=== PATIENT | female | born 1950 | race Caucasian/White ===

== ENCOUNTER 2017-04-03 10:23 | Emergency (ER) | payer MEDICARE, OTHER ==
[2017-04-03] MEDS ORDERED: IOPAMIDOL-300 100 ML VIAL IVP ONE ×2 (10:24→12:04)
[2017-04-03 11:00] LABS: BASOPHILS % (AUTO) 0.4 %; EOSINOPHILS # (AUTO) 0.1 10^3/uL (0.0-0.7); EOSINOPHILS % (AUTO) 1.7 %; HGB - HEMOGLOBIN 11.2 g/dL (12.0-16.0); LYMPHOCYTES # (AUTO) 1.4 10^3/uL (1.5-3.5); LYMPHOCYTES % (AUTO) 26.5 %; MEAN CORPUSCULAR HEMOGLOBIN 28.3 pg (27.0-31.0); MEAN CORPUSCULAR HGB CONC 32.6 g/dL (32.0-36.0); MEAN CORPUSCULAR VOLUME 86.8 fL (81.0-99.0); MEAN PLATELET VOLUME 8.8 fL (7.9-10.8); MONOCYTES # (AUTO) 0.5 10^3/uL (0.0-1.0); NEUTROPHILS # (AUTO) 3.3 10^3/uL (1.5-6.6); NEUTROPHILS % (AUTO) 62.4 %; PLT - PLATELET COUNT 198 10^3/uL (130-450); RED BLOOD COUNT 3.96 10^6/uL (4.20-5.40); RED CELL DISTRIBUTION WIDTH 15.3 % (12.0-15.0); WHITE BLOOD COUNT 5.3 x10^3/uL (4.8-10.8)
[2017-04-03 11:16] LABS: ALBUMIN 3.5 g/dL (3.2-5.5); ALBUMIN/GLOBULIN RATIO 1.3 (1.0-2.2); BILIRUBIN,TOTAL 0.4 mg/dL (0.2-1.0); CALCIUM 8.3 mg/dL (8.5-10.3); CREATININE 0.7 mg/dL (0.4-1.0); TOTAL PROTEIN 6.2 g/dL (6.7-8.2)
--- NOTE | 2017-04-03 11:27 | XRAY Preliminary Report ---
Exam: XR CHEST 2 VIEW X-RAY IMPRESSION: 1. No consolidation evident. [facility] SITE ID: [id number]
--- NOTE | 2017-04-03 11:27 | XRAY Report ---
EXAM: CHEST RADIOGRAPHY EXAM DATE: 04/03/2017 11:13 AM. CLINICAL HISTORY: Chest pain for one week. COMPARISON: Chest x-ray 10/14/2015. TECHNIQUE: 2 views. FINDINGS: Lungs/Pleura: No focal opacities evident. No pleural effusion. No pneumothorax. Normal volumes. Mediastinum: Heart and mediastinal contours are unremarkable. Other: Generalized thoracic kyphosis. Prior lumbar fusion surgery partially imaged. Potential small hiatal hernia. IMPRESSION: 1. No consolidation evident. [facility] Referring Provider Line: [phone] SITE ID: [id number]
--- NOTE | 2017-04-03 11:31 | ED Physician Documentation ---
History of Present Illness - Stated complaint Stated Complaint: CHEST PX/SOA - Chief complaint Chief Complaint: Cardiac - Additonal information Additional information: hx from pt 66 female to ER with right sided CP X 1 week comes and goes but can last many hr at a time when present right sided from side to under breath no leg pain swelling worse with moving breathing laying down no fever cough no abd pain no NVD no recent travel fhx CAD numerous females this pt had DVT 2001 cause unknown not anticoagulated now pain not there right now - just 03/15 Review of Systems Constitutional: denies: Fever Throat: denies: Sore throat Cardiac: reports: Chest pain / pressure Respiratory: reports: Dyspnea. denies: Cough GI: denies: Abdominal Pain, Nausea, Vomiting, Diarrhea Musculoskeletal: denies: Extremity pain Endocrine: denies: Easy bruising / bleeding Immunocompromised: denies: Immunocompromised PD PAST MEDICAL HISTORY - Present Medications Home Medications: Ambulatory Orders Medication Instructions Recorded Confirmed Budesonide/Formoterol Fumarate 04/03/17 [Symbicort 80-4.5 Mcg Inhaler] Lidocaine Patch 5% [Lidoderm Patch] 1 each TOP DAILY PRN #10 patch 04/03/17 Sucralfate 1 gm PO ACHS #120 tablet 04/03/17 raNITIdine [Zantac] 150 mg PO BID #60 tablet 04/03/17 - Allergies Allergies/Adverse Reactions: Allergies Allergy/AdvReac Type Severity Reaction Status Date / Time No Known Drug Allergies Allergy Verified 04/03/17 10:33 PD ED PE NORMAL - Vitals Vital signs reviewed: Yes - General General: Alert and oriented X 3 - HEENT HEENT: PERRL - Neck Neck: Supple, no meningeal sign - Cardiac Cardiac: RRR - Respiratory Respiratory: No respiratory distress, Clear bilaterally, Other (no shingles rash ) - Abdomen Abdomen: Non tender - Derm Derm: Normal color - Extremities Extremities: No deformity, No edema, No calf tenderness / cord - Neuro Neuro: Alert and oriented X 3 Results - Vitals Vitals: Vital Signs - 24 hr 04/03/17 04/03/17 04/03/17 10:27 12:10 13:32 Temperature 35.6 C L Heart Rate 70 69 79 Respiratory 16 18 20 Rate Blood Pressure 211/78 H 169/60 H 162/93 H O2 Saturation 100 99 100 Oxygen O2 Source Room air - EKG (time done) 1031 Rate: Rate (enter#) (71) Rhythm: NSR Intervals: Normal GA Ischemia: Non specific changes (flat laterally and inferior) - Labs Labs: Laboratory Tests 04/03/17 04/03/17 04/03/17 10:55 10:55 10:55 WBC 5.3 RBC 3.96 L Hgb 11.2 L Hct 34.4 L MCV 86.8 MCH 28.3 MCHC 32.6 RDW 15.3 H Plt Count 198 MPV 8.8 Neut # 3.3 Lymph # 1.4 L Perkins # 0.5 Eos # 0.1 Baso # 0.0 Absolute Nucleated RBC 0.00 Nucleated RBC % 0.0 Sodium 139 Potassium 3.8 Chloride 104 Carbon Dioxide 24 Anion Gap 11.0 BUN 15 Creatinine 0.7 Estimated GFR (MDRD) 84 L Glucose 103 H Calcium 8.3 L Total Bilirubin 0.4 AST 19 ALT 14 Alkaline Phosphatase 70 Troponin I < 0.04 Total Protein 6.2 L Albumin 3.5 Globulin 2.7 Albumin/Globulin Ratio 1.3 Lipase 24 - Rads (name of study) CXR Radiology: See rad report (NACPD) CTPA Radiology: See rad report (no PE no dissection) PD MEDICAL DECISION MAKING - ED course ED course: neg trop after sx for many hr every day for a week effectivekly rules out ACS CTPA no PE or dissection, does have HH will reassure an plan to dc Departure - Departure Disposition: 01 Home, Self Care Clinical Impression: Chest pain Qualifiers: Chest pain type: unspecified Qualified Code(s): R07.9 - Chest pain, unspecified Condition: Good Instructions: ED Chest Pain Atypical Unkn Cause Follow-Up: Ash Damian DO [Primary Care Provider] - Prescriptions: Lidocaine Patch 5% [Lidoderm Patch] 1 each TOP DAILY PRN #10 patch PRN Reason: Pain raNITIdine [Zantac] 150 mg PO BID #60 tablet Sucralfate 1 gm PO ACHS #120 tablet Comments: The EKG and blood work indicate these pain are not a heart attack. The CT scan did not show a blood clot in your lung - no an aneurysm or tear of your aorta, a collapsed lung or fluid around your heart or lungs There is a hiatal hernia seen on CT and acid reflux can cause chest pain that is worse at night when you lay down so that is a possible cause Another possible cause of the pain would be shingles - since the pain is severe and one sided - right now there is no shingles rash but often the nerve pain precedes the rash by several days to a week - please check your skin every day and if you develop a rash see your PMD to get anti-viral medication. But for now, given the reassuring work up, I think it is safe for you to go home. I have prescribed lidocaine patches, zantac and carafate to try and help the pain. Please follow up with your PMD for a recheck this week - even though I don't think this pain is a heart attack, I think it would be prudent to get a stress test for risk stratification Return to the ER if worse or new symptoms develop - right now all the tests are reassuring but it is possible that over time as things progress, a diagnosis might become apparent that could not be identified today even after a thorough evaluation
[2017-04-03] MEDS ORDERED: IOPAMIDOL-300 100 ML VIAL ONE (11:39)
--- NOTE | 2017-04-03 12:39 | CT Report ---
EXAM: CT ANGIOGRAM CHEST EXAM DATE: 04/03/2017 12:05 PM. CLINICAL HISTORY: Pleuritic r chest pain. Hx DVT. COMPARISON: Chest x-ray same day. TECHNIQUE: Routine helical imaging was performed through the chest in the pulmonary arterial phase. I V Contrast: 80 cc Isovue 300. Reconstructions: Coronal 3-D MIP reconstructions.Sagittal and coronal. In accordance with CT protocol optimization, one or more of the following dose reduction techniques w ere utilized for this exam: automated exposure control, adjustment of mA and/or KV based on patient s ize, or use of iterative reconstructive technique. FINDINGS: Pulmonary Arteries: Diagnostic quality: Adequate through the segmental arteries. No evidence for acute or chronic pulmona ry emboli. RV/LV is within normal limits. There is no interventricular septal bowing. There is no reflux of cont rast material in the IVC. Lungs/Pleura: Calcified granulomas within both lungs. No lung mass or suspicious nodule. Mild dependent right lower lobe atelectasis. No pleural effusion. Mediastinum: Mild cardiomegaly. No pericardial effusion. Thoracic Aorta: Unremarkable. Upper Abdomen: Small hiatal hernia. Probable prior gastric bypass. Focal mildly dilated left upper qu adrant small bowel loop near enteroenteric anastomosis is expected, given prior surgery. Probable small 1 cm posterior right liver dome cyst with water attenuation. Other: Generalized thoracic kyphosis with multilevel degenerative changes. IMPRESSION: 1. No pulmonary emboli. 2. Small hiatal hernia. Probable prior gastric bypass surgery. 3. Remote granulomatous disease. [facility] Referring Provider Line: [phone] SITE ID: [id number]
[2017-04-03 13:33] VITALS: BP 162/93
== END 2017-04-03 14:10 | disposition home or self-care (01) ==
LOC: ED 10:23
DX: R07.9 Chest pain, unspecified (principal); Z86.718 Personal history of other venous thrombosis and embolism; Z82.49 Family history of ischemic heart disease and other diseases of the circulatory system
CPT/HCPCS: 36415; 71046; 71275; 80053; 83690; 84484; 85025; 93005; 99284; Q9967

== ENCOUNTER 2017-04-24 10:23 | Outpatient (CLI) | payer MEDICARE, OTHER | END 2017-04-24 10:24 | disposition home or self-care (01) | LOC: SC 10:23 | PROVIDERS: ATTEND Internal Medicine Pulmonary Disease | DX: G47.30 Sleep apnea, unspecified (principal); G47.10 Hypersomnia, unspecified; R06.83 Snoring; G47.8 Other sleep disorders | CPT/HCPCS: 99203; G0463; 99212 ==

== ENCOUNTER 2017-04-27 08:32 | Outpatient (CLI) | payer MEDICARE, OTHER ==
[2017-04-27] MEDS ORDERED: REGADENOSON 0.4 MG/5 ML SYRINGE IVP ONE ×2 (09:55→12:53)
--- NOTE | 2017-04-27 14:50 | Nuclear Medicine Report ---
EXAM: SINGLE-ISOTOPE PHARMACOLOGICAL STRESS TEST WITH REGADENOSON. SINGLE-ISOTOPE AND ONE-DAY REST/STRESS M YOCARDIAL PERFUSION SCANS WITH TOMOGRAPHIC IMAGING, QUANTITATIVE ANALYSIS, WALL MOTION ANALYSIS AND C ALCULATION OF EJECTION FRACTION. EXAM DATE: 04/27/2017 01:14 PM. CLINICAL HISTORY: CHEST PAIN. COMPARISON: None. TECHNIQUE: After the intravenous administration of 9.4 mCi of Tc-99m sestamibi, a rest myocardial perfusion scan was done with tomography. Motion correction was applied when appropriate. After an appropriate delay, pharmacological stress was performed with the infusion of 0.4 mg regadeno son per protocol. According to protocol, 42.5 mCi of Tc-99m sestamibi was injected for stress myocard ial perfusion scan. Motion correction was applied when appropriate. Gated tomographic images were obtained for wall motion analysis and computation of left ventricular e jection fraction. FINDINGS: No convincing fixed or reversible perfusion defects are evident. Wall motion analysis demonstrates no focal wall motion abnormality. The left ventricular end-diastolic volume is 83 cc. The left ventricular end-systolic volume is 17 cc . The left ventricular ejection fraction is calculated to be 79%. IMPRESSION: 1. No scintigraphic findings to indicate myocardial ischemia. Negative for infarct. 2. Left ventricular ejection fraction of >65%. 3. Normal segmental and global wall motion. 4. Normal left ventricular cavity size, no change with stress. [facility] Referring Provider Line: [phone] SITE ID: [id number]
[2017-04-27 17:54] VITALS: BP 112/76
--- NOTE | 2017-04-28 10:44 | CARDIAC PROCEDURE NOTE ---
DATE OF SERVICE: 04/27/2017 Physician: SCAR Downing PRIMARY CARE PHYSICIAN: Dr. Ash Damian PROCEDURE: Pharmaceutical stress test. PROCEDURE SYMPTOMS: Atypical chest pain. CARDIAC RISK FACTORS INCLUDE: Age and family history at greater than 65 years of age. PREVIOUS CARDIAC PROCEDURES: None. CURRENT SYMPTOMATOLOGY: "Feels good." History of reactive airway disease. CLINICAL HISTORY: A 66-year-old sedentary female without known coronary artery disease. INITIAL RESTING VITAL SIGNS: Blood pressure 112/76, heart rate 74, height 63 inches, weight 245, BMI 43.4. PROCEDURE AND FINDINGS: Patient identity and date verified, consent signed, pharmaceutical check. DESCRIPTION: Pharmaceutical stress testing was performed with Lexiscan at a dose of 0.4 mg/5 mL IV push. The heart rate osiris to 101 beats per minute and blood pressure increased to 126/88, which is a normal response. The patient experienced infusion-related symptoms including mild shortness of air and a pulsing sensation in the right chest. Those symptoms resolved spontaneously. The resting ECG demonstrated normal sinus rhythm with no abnormality. Maximum ST segment depression under stress was less than 0.5 and upsloping. T- wave inversion occurred right after pharmaceuticals were in, occurring in leads aVF and V3-5, lasting approximately 3.5 minutes. The patient denied any chest pain during this time. Ectopy included 1 PVC. FINAL IMPRESSIONS 1. Overall quality of the study was good. 2. Nondiagnostic stress electrocardiogram for ischemia by electrocardiographic criteria with T-wave inversions that resolved. 3. Nondiagnostic stress test clinically for angina. 4. One premature ventricular contraction occurred. 5. Await myocardial perfusion test result. TD: 04/27/2017 12:05 KEY
== END 2017-04-27 08:33 | disposition home or self-care (01) ==
LOC: DI 08:32
PROVIDERS: ATTEND Family Medicine
DX: R07.9 Chest pain, unspecified (principal)
CPT/HCPCS: 78452; 93017; A9500; J2785

== ENCOUNTER 2017-05-11 08:00 | Outpatient (CLI) | payer MEDICARE, OTHER ==
[2017-05-11 13:07] LABS: CHOL/HDL RATIO 2.2 (<4.4); CHOLESTEROL 184 mg/dL; HDL CHOLESTEROL 84 mg/dL; LDL CHOLESTEROL,CALCULATED 84 mg/dL; VLDL CHOLESTEROL 16 mg/dL
== END 2017-05-11 08:01 | disposition home or self-care (01) ==
LOC: LAB.WCP 08:00
PROVIDERS: ATTEND Family Medicine
DX: R07.9 Chest pain, unspecified (principal)
CPT/HCPCS: 36415; 80061; 83721

== ENCOUNTER 2017-06-12 10:27 | Outpatient (CLI) | payer MEDICARE, OTHER | END 2017-06-12 10:28 | disposition home or self-care (01) | LOC: LAB 10:27 | PROVIDERS: ATTEND Surgery | DX: R10.13 Epigastric pain (principal) ==

== ENCOUNTER 2017-06-14 21:58 | Outpatient (CLI) | payer MEDICARE, OTHER | END 2017-06-14 21:59 | disposition home or self-care (01) | LOC: SC 21:58 | PROVIDERS: ATTEND Internal Medicine Pulmonary Disease | DX: G47.33 Obstructive sleep apnea (adult) (pediatric) (principal) | CPT/HCPCS: 95810 ==

== ENCOUNTER 2017-06-24 10:51 | Outpatient (CLI) | payer MEDICARE, OTHER ==
--- NOTE | 2017-06-24 15:12 | Ultrasound Report ---
EXAM: ABDOMEN ULTRASOUND LIMITED, RUQ EXAM DATE: 06/24/2017 11:07 AM. CLINICAL HISTORY: EPIGASTRIC PAIN. COMPARISON: CT angiogram chest 04/03/2017. TECHNIQUE: Real-time scanning was performed with static images obtained. FINDINGS: Liver: Normal in size and echotexture. 16 cm. Normal size, contour, and echotexture. 2.9 x 1.9 x 2.2 cm lobular cyst with thin internal septations inferiorly in the anterior right hepatic lobe, as seen on the prior CT. No other focal lesions are identified. Main portal vein flow: Hepatopetal. Gallbladder: Normal. No stones, wall thickening, or sonographic Cee's sign. Biliary System: CBD measures 5 mm. No intrahepatic or extrahepatic ductal dilatation. Other: Right kidney unremarkable. IMPRESSION: 1. No findings to extend epigastric pain. 2. 2.9 x 1.9 x 2.2 cm mildly complex cyst inferiorly in the anterior right hepatic lobe, similar to f indings on a recent CT angiogram chest. One-year ultrasound follow-up is recommended to reassess. LASHAUN Referring Provider Line: [phone] SITE ID: [id number]
== END 2017-06-24 10:52 | disposition home or self-care (01) ==
LOC: DI 10:51
PROVIDERS: ATTEND Surgery
DX: R10.13 Epigastric pain (principal); K76.89 Other specified diseases of liver
CPT/HCPCS: 76705

== ENCOUNTER 2017-06-27 09:58 | Day surgery (SDC) | payer MEDICARE, OTHER ==
[2017-06-27] MEDS: LACTATED RINGERS 1,000 ML IV ONE (10:31)
[2017-06-27] MEDS ORDERED: fentaNYL 250 MCG/5 ML VIAL IVP ONE (11:00)
[2017-06-27] MEDS ORDERED: MIDAZOLAM 2 MG/2 ML VIAL IVP ONE (11:00)
[2017-06-27] MEDS: BENZOCAINE/TETRACAINE/BUTAMBEN SPRAY 56 GM TOP ONE (11:12)
[2017-06-27 12:33] VITALS: BP 97/52
== END 2017-06-27 09:59 | disposition home or self-care (01) ==
LOC: SDS 09:58
PROVIDERS: ATTEND Surgery
PROC: 0DBF8ZX Excision of Right Large Intestine, Via Natural or Artificial Opening Endoscopic, Diagnostic (ICD-10-PCS; 2017-06-27)
PROC: 0DBN8ZX Excision of Sigmoid Colon, Via Natural or Artificial Opening Endoscopic, Diagnostic (ICD-10-PCS; 2017-06-27)
PROC: 0DBP8ZX Excision of Rectum, Via Natural or Artificial Opening Endoscopic, Diagnostic (ICD-10-PCS; 2017-06-27)
PROC: 0DB48ZX Excision of Esophagogastric Junction, Via Natural or Artificial Opening Endoscopic, Diagnostic (ICD-10-PCS; principal; 2017-06-27 11:15)
PROC: 0DB68ZX Excision of Stomach, Via Natural or Artificial Opening Endoscopic, Diagnostic (ICD-10-PCS; 2017-06-27 11:15)
DX: Z12.11 Encounter for screening for malignant neoplasm of colon (principal); K21.0 Gastro-esophageal reflux disease with esophagitis; D12.5 Benign neoplasm of sigmoid colon; Z98.84 Bariatric surgery status
CPT/HCPCS: 43239; 45380; A9270; J3010; J7120; 88305

== ENCOUNTER 2017-07-18 08:58 | Outpatient (CLI) | payer MEDICARE, OTHER | END 2017-07-18 08:59 | disposition home or self-care (01) | LOC: SC 08:58 | PROVIDERS: ATTEND Nurse Practitioner Family | DX: G47.33 Obstructive sleep apnea (adult) (pediatric) (principal) | CPT/HCPCS: 99214 ==

== ENCOUNTER 2017-10-12 19:47 | Outpatient (CLI) | payer MEDICARE, OTHER | END 2017-10-12 19:48 | disposition home or self-care (01) | LOC: SC 19:47 | PROVIDERS: ATTEND Internal Medicine Pulmonary Disease | DX: G47.33 Obstructive sleep apnea (adult) (pediatric) (principal) | CPT/HCPCS: 95811 ==

== ENCOUNTER 2017-11-01 09:36 | Outpatient (CLI) | payer MEDICARE, OTHER | END 2017-11-01 09:37 | disposition home or self-care (01) | LOC: SC 09:36 | PROVIDERS: ATTEND Nurse Practitioner Family | DX: G47.33 Obstructive sleep apnea (adult) (pediatric) (principal) | CPT/HCPCS: 99214; G0463; 99212 ==

== ENCOUNTER 2017-12-06 09:43 | Outpatient (CLI) | payer MEDICARE, OTHER | END 2017-12-06 09:44 | disposition home or self-care (01) | LOC: SC 09:43 | PROVIDERS: ATTEND Nurse Practitioner Family | DX: G47.33 Obstructive sleep apnea (adult) (pediatric) (principal) | CPT/HCPCS: 99214; G0463; 99212 ==

== ENCOUNTER 2018-02-06 09:58 | Outpatient (CLI) | payer MEDICARE, OTHER | END 2018-02-06 09:59 | disposition home or self-care (01) | LOC: SC 09:58 | PROVIDERS: ATTEND Nurse Practitioner Family | DX: G47.33 Obstructive sleep apnea (adult) (pediatric) (principal); R03.0 Elevated blood-pressure reading, without diagnosis of hypertension | CPT/HCPCS: 99215; G0463; 99212 ==

== ENCOUNTER 2018-02-13 10:37 | Outpatient (CLI) | payer MEDICARE, OTHER ==
[2018-02-13 17:40] LABS: BASOPHILS # (AUTO) 0.1 10^3/uL (0.0-0.1); BASOPHILS % (AUTO) 0.7 %; EOSINOPHILS # (AUTO) 0.1 10^3/uL (0.0-0.7); EOSINOPHILS % (AUTO) 1.4 %; HGB - HEMOGLOBIN 11.5 g/dL (12.0-16.0); LYMPHOCYTES # (AUTO) 1.8 10^3/uL (1.5-3.5); LYMPHOCYTES % (AUTO) 24.3 %; MEAN CORPUSCULAR HEMOGLOBIN 26.9 pg (27.0-31.0); MEAN CORPUSCULAR HGB CONC 31.5 g/dL (32.0-36.0); MEAN CORPUSCULAR VOLUME 85.6 fL (81.0-99.0); MEAN PLATELET VOLUME 8.9 fL (7.9-10.8); MONOCYTES # (AUTO) 0.5 10^3/uL (0.0-1.0); MONOCYTES % (AUTO) 6.2 %; NEUTROPHILS % (AUTO) 67.4 %; PLT - PLATELET COUNT 230 10^3/uL (130-450); RED BLOOD COUNT 4.28 10^6/uL (4.20-5.40); RED CELL DISTRIBUTION WIDTH 16.3 % (12.0-15.0); WHITE BLOOD COUNT 7.5 x10^3/uL (4.8-10.8)
[2018-02-13 17:57] LABS: ALBUMIN 3.9 g/dL (3.2-5.5); ALBUMIN/GLOBULIN RATIO 1.4 (1.0-2.2); ALKALINE PHOSPHATASE 83 IU/L (42-121); ALT ALANINE AMINOTRANSFERASE 16 IU/L (10-60); AST ASPARTATE AMINOTRANSFERASE 21 IU/L (10-42); BILIRUBIN,TOTAL 0.5 mg/dL (0.2-1.0); BUN - BLOOD UREA NITROGEN 13 mg/dL (6-20); CALCIUM 8.6 mg/dL (8.5-10.3); CARBON DIOXIDE - CO2 23 mmol/L (21-32); CHLORIDE 109 mmol/L (101-111); CHOL/HDL RATIO 2.5 (<4.4); CHOLESTEROL 198 mg/dL; CREATININE 0.7 mg/dL (0.4-1.0); GFR - MDRD 84 (>89); GLUCOSE 92 mg/dL (70-100); HDL CHOLESTEROL 79 mg/dL; LDL CHOLESTEROL,CALCULATED 99 mg/dL; LDL/HDL RATIO 1.3 (<4.4); SODIUM 139 mmol/L (135-145); TOTAL PROTEIN 6.6 g/dL (6.7-8.2); VLDL CHOLESTEROL 20 mg/dL
== END 2018-02-13 23:59 | disposition home or self-care (01) ==
LOC: LAB.WCP 10:37
PROVIDERS: ATTEND Family Medicine
DX: R05 Cough (principal); I10 Essential (primary) hypertension; R79.1 Abnormal coagulation profile
CPT/HCPCS: 36415; 80053; 80061; 83721; 85025; 85379

== ENCOUNTER 2018-02-13 17:07 | Outpatient (CLI) | payer MEDICARE, OTHER ==
[2018-02-13] MEDS ORDERED: IOVERSOL 320 100 ML VIAL IVP ONE ×2 (17:47→20:34)
--- NOTE | 2018-02-13 20:24 | CT Report ---
Reason: D DIMER ABOVE REFERENCE RANGE/COUGH/DEEP VENOUS TH Procedure Date: 02/13/2018 Accession Number: [id number] / [id number] Procedure: CT - Chest Angio (PE) CPT Code: FULL RESULT: EXAM: CT ANGIOGRAM CHEST EXAM DATE: 02/13/2018 07:20 PM. CLINICAL HISTORY: D DIMER ABOVE REFERENCE RANGE/COUGH/DEEP VENOUS TH. COMPARISON: CHEST ANGIO 04/03/2017 12:01 PM. TECHNIQUE: Routine helical imaging was performed through the chest in the pulmonary arterial phase. IV Contrast: 80 ML OPTIRAY 320. Reconstructions: Coronal 3-D MIP reconstructions.Sagittal and coronal. In accordance with CT protocol optimization, one or more of the following dose reduction techniques were utilized for this exam: automated exposure control, adjustment of mA and/or KV based on patient size, or use of iterative reconstructive technique. FINDINGS: Pulmonary Arteries: Diagnostic quality: Adequate through the segmental arteries. No evidence for acute or chronic pulmonary emboli. RV/LV is within normal limits. There is no interventricular septal bowing. There is no reflux of contrast material in the IVC. Lungs/Pleura: No consolidation, mass, edema, effusion or pneumothorax identified. Stable 3 mm right upper lobe nodule abutting the fissure, image 55. Stable 3 mm lateral segment right middle lobe nodule abutting the fissure on image 58. Scattered lung calcified granulomas are present. No endobronchial lesions identified. Mediastinum: Extensive mitral valve annular calcification is noted. Borderline cardiac enlargement unchanged. No adenopathy noted. Thoracic Aorta: Unremarkable. Upper Abdomen: Status post gastric bypass. Moderate paraesophageal hernia. 2.2 cm segment 5 liver cysts. No mass or intraparotid bile duct dilation. 1.5 cm left adrenal nodule measuring -18 HU. Normal right adrenal gland. Other: Heterogeneous thyroid parenchyma. No mass or abnormal calcifications noted. No supraclavicular or axillary adenopathy. Patient is kyphotic. No osteoblastic or also the lesions. IMPRESSION: 1. Normal pulmonary CT angiogram. No pulmonary emboli. 2. Scattered pulmonary calcified granulomas. 3 mm stable right upper and right middle lobe nodules. No effusions or pneumothorax. 3. No adenopathy. Stable borderline cardiac enlargement. No pericardial effusion. 4. Moderate paraesophageal hernia. Previous gastric bypass procedure. 5. Stable left adrenal adenoma. Recommend follow-up of the described nodule(s) according to the following guidelines: Fleischner Society Recommendations 2017 MacMahon et al. Radiology 2017 Solid Nodules-Low Risk Patients: <6 mm (single or multiple) - No routine follow-up* Solid Nodules-High Risk Patients: <6 mm (single or multiple) -Optional CT at 12 months* [facility] The call report notification system was initiated by Dr. Catalina Lambert at 20:06 hrs on 02/13/18. The above findings were discussed with Dr Nati by Dr. Catalina Lambert at 20:22 hrs on 02/13/18.
== END 2018-02-13 17:08 | disposition home or self-care (01) ==
LOC: DI 17:07
PROVIDERS: ATTEND Family Medicine
DX: J84.10 Pulmonary fibrosis, unspecified (principal); R91.8 Other nonspecific abnormal finding of lung field; K44.9 Diaphragmatic hernia without obstruction or gangrene; D35.02 Benign neoplasm of left adrenal gland; R05 Cough; R79.1 Abnormal coagulation profile; Z86.72 Personal history of thrombophlebitis; I10 Essential (primary) hypertension
CPT/HCPCS: 36415; 71275; 80053; 80061; 85025; 85379; Q9967; 83721

== ENCOUNTER 2018-02-17 08:43 | Outpatient (CLI) | payer MEDICARE, OTHER ==
[2018-02-17] MEDS ORDERED: GADOBUTROL 10 MMOL/10 ML VIAL ONE (09:15)
[2018-02-17] MEDS ORDERED: GADOBUTROL 10 MMOL/10 ML VIAL IVP ONE (09:59)
--- NOTE | 2018-02-18 15:58 | MRI Report ---
Reason: LUMBAR RADICULOPATHY,LEFT Procedure Date: 02/17/2018 Accession Number: [id number] / [id number] Procedure: MRI - Lumbar Spine W/WO CPT Code: FULL RESULT: EXAM: MRI LUMBAR SPINE WITHOUT AND WITH CONTRAST. EXAM DATE: 02/17/2018 09:33 AM. CLINICAL HISTORY: 67-year-old with history of prior lumbar spine fusion presenting with low back pain and left lower extremity radiculopathy. Evaluate for lumbar pathology. COMPARISONS: Lumbar radiograph 02/13/2018. TECHNIQUE: Multiplanar, multisequence T1-weighted and fluid-sensitive sequences of the lumbar spine from T12 to S1 before and after administration of intravenous contrast. Other: None. IV contrast: 10 cc Gadavist. FINDINGS: Postsurgical: Postsurgical changes of L4-L5 posterior spinal instrumented fusion, L4-L5 diskectomy with interbody fusion graft placement, and L4-L5 laminectomy. There is associated metallic susceptibility artifact that technically limits evaluation of the surrounding soft tissues. Neurologic Structures: The conus terminates at L1. The conus medullaris and cauda equina are unremarkable. Alignment: There appears to be mild to moderate rightward scoliotic curvature of the lumbar spine. There is 2-3 mm of grade 1 anterolisthesis of L4 and L5. Bone Marrow: Five [id number] lumbar vertebral bodies are assumed. No acute fracture seen. There are Modic type I and type II changes seen throughout the lumbar spine that are likely degenerative in nature. There is no definite abnormal mass or mass-like enhancement seen within the vertebral bodies. Disk Levels/Facets: T11-T12: Mild endplate degenerative change, mild loss of disk height, and disk desiccation. Minimal bilateral arthritic facet disease. No definite spinal canal stenosis. No definite neural foraminal narrowing. T12-L1: Mild endplate degenerative change, Schmorl's node formation, mild loss of disk height, and disk desiccation. Minimal bilateral arthritic facet disease. No spinal canal stenosis. No significant neural foraminal narrowing. L1-L2: Mild endplate degenerative change, Schmorl's node formation, mild loss of disk height, and disk desiccation. Minimal bilateral arthritic facet disease. No spinal canal stenosis. No significant neural foraminal narrowing. L2-L3: Mild endplate degenerative change, mild loss of disk height, and disk desiccation. Small posterior disk bulge and bilateral arthritic facet disease. No spinal canal stenosis. No significant neural foraminal narrowing. L3-L4: Mild endplate degenerative change with mild loss of disk height. Small posterior disk bulge, bilateral arthritic facet disease, prominent epidural fat, and ligamentum flavum thickening. Mild spinal canal stenosis. Mild bilateral neural foraminal narrowing. L4-L5: Changes of diskectomy. Retrolisthesis. Decompression of the thecal sac. Bilateral arthritic facet disease. No definite spinal canal stenosis. Evaluation of the neural foramen is technically limited by susceptibility artifact but there appears to be mild bilateral neural foraminal narrowing. L5-S1: Mild endplate degenerative change with mild loss of disk height. Small posterior disk bulge and bilateral arthritic facet disease. Fluid is seen within the facets bilaterally. Effacement of the lateral recesses. Mild left neural foraminal narrowing. Spinal Canal: No enhancing masses within the spinal canal. No epidural abscess. Musculature: Mild to moderate fatty atrophy of the multifidus muscles. There is surgical changes seen within the cutaneous tissues of the low back. Other: The visualized retroperitoneum is unremarkable. IMPRESSION: 1. Postsurgical changes of L4-L5 posterior spinal instrumented fusion, L4-L5 diskectomy with interbody fusion graft placement, and L4-L5 laminectomy. There is associated metallic susceptibility artifact that technically limited evaluation of the surrounding soft tissues. 2. Multilevel degenerative changes. L3-L4: Mild spinal canal stenosis. Mild bilateral neuroforaminal narrowing. L4-L5: No definite spinal canal stenosis. Evaluation of the neural foramen is technically limited by susceptibility artifact but there appears to be mild bilateral neuroforaminal narrowing. L5-S1: Effacement of the lateral recesses. Mild left neuroforaminal narrowing. Comment: The following findings are so common in adults without low back pain that while we report their presence, they must be interpreted with caution and in the context of the clinical situation. (Reference Franciscok et al, Spine 2001) Prevalence of findings in patients without low back pain: Disk degeneration (any evidence): 92% Disk desiccation/T2 signal loss: 83% Disk height loss: 56% Disk bulge: 64% Disk protrusion: 32% Annular tear/high intensity zone: 38% [facility]
== END 2018-02-17 08:44 | disposition home or self-care (01) ==
LOC: DI 08:43
PROVIDERS: ATTEND Family Medicine
DX: M47.26 Other spondylosis with radiculopathy, lumbar region (principal); M48.061 Spinal stenosis, lumbar region without neurogenic claudication
CPT/HCPCS: 72158; A9585

== ENCOUNTER 2018-02-20 09:29 | Outpatient (CLI) | payer MEDICARE, OTHER ==
[2018-02-20 09:56] LABS: BASOPHILS % (AUTO) 0.6 %; EOSINOPHILS # (AUTO) 0.1 10^3/uL (0.0-0.7); EOSINOPHILS % (AUTO) 1.1 %; LYMPHOCYTES # (AUTO) 1.5 10^3/uL (1.5-3.5); LYMPHOCYTES % (AUTO) 24.7 %; MEAN CORPUSCULAR HEMOGLOBIN 27.5 pg (27.0-31.0); MEAN CORPUSCULAR HGB CONC 33.1 g/dL (32.0-36.0); MEAN CORPUSCULAR VOLUME 83.3 fL (81.0-99.0); MEAN PLATELET VOLUME 9.2 fL (7.9-10.8); MONOCYTES # (AUTO) 0.7 10^3/uL (0.0-1.0); MONOCYTES % (AUTO) 10.8 %; NEUTROPHILS # (AUTO) 3.8 10^3/uL (1.5-6.6); NEUTROPHILS % (AUTO) 62.8 %; PLT - PLATELET COUNT 221 10^3/uL (130-450); RED BLOOD COUNT 4.36 10^6/uL (4.20-5.40); WHITE BLOOD COUNT 6.1 x10^3/uL (4.8-10.8)
[2018-02-20 10:12] LABS: ALBUMIN 3.9 g/dL (3.2-5.5); ALBUMIN/GLOBULIN RATIO 1.4 (1.0-2.2); ALKALINE PHOSPHATASE 78 IU/L (42-121); ALT ALANINE AMINOTRANSFERASE 16 IU/L (10-60); AST ASPARTATE AMINOTRANSFERASE 23 IU/L (10-42); BILIRUBIN,TOTAL 0.5 mg/dL (0.2-1.0); BUN - BLOOD UREA NITROGEN 12 mg/dL (6-20); CALCIUM 8.7 mg/dL (8.5-10.3); CARBON DIOXIDE - CO2 25 mmol/L (21-32); CHLORIDE 101 mmol/L (101-111); CHOL/HDL RATIO 2.5 (<4.4); CHOLESTEROL 196 mg/dL; CREATININE 0.8 mg/dL (0.4-1.0); GFR - MDRD 72 (>89); GLUCOSE 112 mg/dL (70-100); HDL CHOLESTEROL 80 mg/dL; LDL CHOLESTEROL,CALCULATED 102 mg/dL; LDL/HDL RATIO 1.3 (<4.4); SODIUM 137 mmol/L (135-145); TOTAL PROTEIN 6.7 g/dL (6.7-8.2); VLDL CHOLESTEROL 14 mg/dL
== END 2018-02-20 09:30 | disposition home or self-care (01) ==
LOC: LAB 09:29
PROVIDERS: ATTEND Family Medicine
DX: I10 Essential (primary) hypertension (principal)
CPT/HCPCS: 36415; 80053; 80061; 83721; 85025

== ENCOUNTER 2018-05-09 14:27 | Outpatient (CLI) | payer MEDICARE, OTHER | END 2018-05-09 14:28 | disposition home or self-care (01) | LOC: SC 14:27 | PROVIDERS: ATTEND Nurse Practitioner Family | DX: G47.33 Obstructive sleep apnea (adult) (pediatric) (principal) | CPT/HCPCS: 99214; G0463; 99212 ==

== ENCOUNTER 2018-11-07 16:15 | Outpatient (CLI) | payer MEDICARE, OTHER ==
[2018-11-07 17:45] VITALS: BP 134/70
--- NOTE | 2018-11-07 17:45 | SLEEP CARE CONSULTATION ---
Information from patient questionnaire entered by Becky Toth. I have reviewed and concur with the information entered by Becky Toth. This document represents the service I personally performed and the decisions made by me, Dior Pride, RN, MSN, [employer]. History of Present Illness Previous diagnosis: Mild, Obstructive Sleep Apnea-Hypopnea Syndrome AHI: 9.8 Reason for CPAP/BiPAP follow up: six month Equipment type: CPAP Equipment obtained from: [employer] Mask style: Full face Mask brand: Respironics HPI additional information: Patient did not use strap covers discussed for mask lines but did loosen mask and mask line less. She found that the mask barrier cloth sent was too complicated to use so instead uses toilet tissue as a barrier. NO further skin irritation. CPAP Compliance Data - Data Reviewed with Patient Average duration of nightly device use: 5.5 Compliance rate %: 83 Current pressure setting (cmH2O): 10 Average residual AHI: 1.5 Subjective Patient concerns: reports: mask discomfort (feels like a tourniquet. ), condensation in mask/hose, nasal congestion (seasonal and not bothering use of CPAP ), other (headache from headgear that is resolved with taking off mask. ). denies: aerophagia, air blowing in eyes, mask leak noise, dry mouth, nose, throat, epistaxis Observed to snore while using device: No Current pressure setting perceived as: comfortable On therapy, patient: reports: sleeping better, being more awake and alert during the day, more rested overall Initial Ord Sleepiness Scale score: 9 Current Ord Sleepiness Scale score: 5 Allergies and Home Medications Allergy and home medication list: Symbicort 160-4.5MCG/ACT Inhale 2 actuations BID Bupropion XL 300mg tab one daily hydrochlorthiazide 25mg daily Ventolin inhaler As needed. Review of Systems Review of systems same as previous: No (nausea today with emesis, keeping fluids down) Physical Exam Blood Pressure: 134/70 Cuff size: long Heart Rate: 78 O2 Saturation: 95 Height: 5 ft 2.5 in Weight (kg): 223 lb 6.4 oz (lost 13 pounds ) Body Mass Index: 40.1 BMI Classification: Class 3 Impression and Plan 1. Obstructive Sleep Apnea-Hypopnea Syndrome, mild, with good treatment compliance and good apnea control. On CPAP therapy, the patient has better sleep quality and is more rested overall. Since patient has lost more weight, now 20 pounds in the past 9 months and plans on losing more, I will change her CPAP pressure to [id number] to accomodate future weight loss. She was advised of symptoms to report for further adjustment of pressure for significant weight loss. I discussed that if she reaches the lowest pressure need with weight loss, then another polysomnography can be completed to re-evaluate if she still needs treatment. For her mask concerns, I advised her to loosen mask until comfortable. If unable to get comfortable and control mask leaks, then a mask refitting was ordered. For condensation, she is advised to increase her heated hose. She is to adjust as needed for comfort. She was also advised to put mask on after using restroom for maximum benefit of treatment. There is more REM sleep with higher risk of apnea in later sleep. Patient's apnea severity and rationale for treatment to reduce apnea, improve sleep quality and reduce cardiovascular and cerebrovascular events was reviewed. I also reviewed the benefit of consistent device use of CPAP for her depression/anxiety. * Change CPAP pressure to 8-10 cmH2O * loosen mask * mask refitting * Notify me if snoring with mask or feeling that the pressure is too much or too little * Continue to lose weight * Return for follow up in 1 year , or sooner if concerns arise I spent 100% of this 35 minute visit face to face with the patient with greater than 50% of this was spent time counseling the patient and coordination of care.
== END 2018-11-07 16:16 | disposition home or self-care (01) ==
LOC: SC 16:15
PROVIDERS: ATTEND Nurse Practitioner Family
DX: G47.33 Obstructive sleep apnea (adult) (pediatric) (principal)
CPT/HCPCS: 99214; G0463; 99212

== ENCOUNTER 2019-08-07 08:00 | Outpatient (CLI) | payer MEDICARE, OTHER ==
[2019-08-07 11:48] LABS: BASOPHILS % (AUTO) 0.5 %; EOSINOPHILS # (AUTO) 0.1 10^3/uL (0.0-0.7); EOSINOPHILS % (AUTO) 1.2 %; HGB - HEMOGLOBIN 12.2 g/dL (12.0-16.0); LYMPHOCYTES # (AUTO) 1.6 10^3/uL (1.5-3.5); LYMPHOCYTES % (AUTO) 28.5 %; MEAN CORPUSCULAR HGB CONC 31.9 g/dL (32.0-36.0); MEAN CORPUSCULAR VOLUME 91.2 fL (81.0-99.0); MONOCYTES # (AUTO) 0.4 10^3/uL (0.0-1.0); MONOCYTES % (AUTO) 7.8 %; NEUTROPHILS # (AUTO) 3.5 10^3/uL (1.5-6.6); NEUTROPHILS % (AUTO) 61.6 %; PLT - PLATELET COUNT 221 10^3/uL (130-450); RED CELL DISTRIBUTION WIDTH 14.6 % (12.0-15.0); WHITE BLOOD COUNT 5.6 x10^3/uL (4.8-10.8)
[2019-08-07 12:37] LABS: ALBUMIN 3.6 g/dL (3.2-5.5); ALBUMIN/GLOBULIN RATIO 1.2 (1.0-2.2); ALKALINE PHOSPHATASE 75 IU/L (42-121); ALT ALANINE AMINOTRANSFERASE 14 IU/L (10-60); AST ASPARTATE AMINOTRANSFERASE 20 IU/L (10-42); BILIRUBIN,TOTAL 0.7 mg/dL (0.2-1.0); BUN - BLOOD UREA NITROGEN 14 mg/dL (6-20); CALCIUM 8.7 mg/dL (8.5-10.3); CARBON DIOXIDE - CO2 27 mmol/L (21-32); CHLORIDE 104 mmol/L (101-111); CHOL/HDL RATIO 2.8 (<4.4); CHOLESTEROL 199 mg/dL; CREATININE 0.8 mg/dL (0.4-1.0); GLUCOSE 91 mg/dL (70-100); HDL CHOLESTEROL 72 mg/dL; LDL CHOLESTEROL,CALCULATED 113 mg/dL; LDL/HDL RATIO 1.6 (<4.4); SODIUM 141 mmol/L (135-145); TOTAL PROTEIN 6.6 g/dL (6.7-8.2); VLDL CHOLESTEROL 14 mg/dL
== END 2019-08-07 23:59 | disposition home or self-care (01) ==
LOC: LAB.WCP 08:00
PROVIDERS: ATTEND Family Medicine
DX: I10 Essential (primary) hypertension (principal)
CPT/HCPCS: 36415; 80053; 80061; 83721; 85025

== ENCOUNTER 2019-08-07 12:34 | Outpatient (CLI) | payer MEDICARE, OTHER ==
--- NOTE | 2019-08-07 13:35 | XRAY Report ---
Reason: KNEE PAIN,LEFT Procedure Date: 08/07/2019 Accession Number: [id number] / [id number] Procedure: XR - Knee 2 View LT CPT Code: Final Report FULL RESULT: PROCEDURE: Knee 2 View LT INDICATIONS: KNEE PAIN,LEFT TECHNIQUE: 2 views of the left knee(s) were acquired. COMPARISON: None available for review. FINDINGS: Bones: No acute fractures or dislocations. No suspicious bony lesions. Moderate-severe tricompartmental degenerative changes of the left knee with prominent marginal osteophyte formation and joint space narrowing of both the medial and lateral femorotibial compartments. Soft tissues: No substantial joint effusion. No suspicious soft tissue calcifications. IMPRESSION: Moderate to severe tricompartmental osteoarthrosis of the left knee. Reviewed by: Seng Rosales MD on 08/07/2019 1:34 PM PDT Approved by: Seng Rosales MD on 08/07/2019 1:34 PM PDT Station ID: [id number]
== END 2019-08-07 12:35 | disposition home or self-care (01) ==
LOC: DI 12:34
PROVIDERS: ATTEND Family Medicine
DX: M17.12 Unilateral primary osteoarthritis, left knee (principal); I10 Essential (primary) hypertension
CPT/HCPCS: 36415; 80053; 80061; 83721; 85025

== ENCOUNTER 2019-08-26 07:47 | Outpatient (CLI) | payer MEDICARE, OTHER ==
--- NOTE | 2019-08-26 09:23 | DEXA Report ---
Reason: POST MENOPAUSAL Procedure Date: 08/26/2019 Accession Number: [id number] / [id number] Procedure: DEX - Dexa Spine and/or Hip CPT Code: Final Report FULL RESULT: PROCEDURE: Dexa Spine and/or Hip INDICATIONS: POST MENOPAUSAL TECHNIQUE: Dual energy x-ray absorptiometry (DXA) was performed on a [employer] System. Regions measured are the AP Spine, femoral neck, and if needed forearm. COMPARISON: None. FINDINGS: Lumbar Spine: Bone Mineral Density 0.893 g/cm/cm,T score -2.4. Total left Hip: Bone Mineral Density 0.821 g/cm/cm,T score -1.5. Left Femoral Neck: Bone Mineral Density 0.823 g/cm/cm, T score -1.5. (T score greater or equal to -1.0: NORMAL) (T score from -1.1 to -2.4: OSTEOPENIA) (T score less than or equal to -2.5 to: OSTEOPOROSIS) Impression: Finding is consistent with osteopenia with increased risk of fractures. Patients with diagnosis of osteoporosis or osteopenia should have regular bone mineral density assessment. For those eligible for Medicare, routine testing is allowed once every 2 years. Testing frequency can be increased for patients who have rapidly progressing disease or for those who are receiving medical therapy to restore bone mass. Reviewed by: Erich Morales MD on 08/26/2019 9:22 AM PDT Approved by: Erich Morales MD on 08/26/2019 9:22 AM PDT Station ID: [id number]
== END 2019-08-26 07:48 | disposition home or self-care (01) ==
LOC: DI 07:47
PROVIDERS: ATTEND Family Medicine
DX: M85.89 Other specified disorders of bone density and structure, multiple sites (principal)
CPT/HCPCS: 77080

== ENCOUNTER 2019-11-18 07:54 | Outpatient (CLI) | payer MEDICARE, OTHER ==
--- NOTE | 2019-11-18 08:37 | SLEEP CARE CONSULTATION ---
Information from patient questionnaire entered by Kimmy Mendenhall. I have reviewed and concur with the information entered by Kimmy Mendenhall. This document represents the service I personally performed and the decisions made by me, Jackie Harris ARNP. History of Present Illness Service Date and Time: 11/18/2019 0754 Previous diagnosis: Mild, Obstructive Sleep Apnea-Hypopnea Syndrome AHI: 9.8 Reason for follow up: annual Equipment type: CPAP Equipment obtained from: Other ([facility]; getting supplies as needed) Mask style: Full face Backup mask available: Yes (old mask) Last cushion change: 1-2 weeks ago Prior sleep studies: Yes Year and Where: 2017 [facility] Type of Sleep Study: Polysomnography HPI additional information: DEDRA HANNA was diagnosed to have mild, AHI 9.8, obstructive sleep apnea- hypopnea syndrome and returned today with spouse for CPAP therapy annual follow- up. CPAP Compliance Data - Data Reviewed with Patient Average duration of nightly device use: 5 hours 23 minutes Compliance rate %: 98 Current pressure setting (cmH2O): 8-10 Average residual AHI: 1.6 Subjective Patient concerns: reports: mask discomfort (pulls hair, chokes her on the neck, "too confining"), air blowing in eyes, condensation in mask/hose (sometimes, adjusts humidity as needed), dry mouth, nose, throat, other (feel strangled with her mask). denies: aerophagia, mask leak noise, nasal congestion, epistaxis (only if humidity is too low) Observed to snore while using device: No Current pressure setting perceived as: comfortable On therapy, patient: reports: sleeping better, awakening more refreshed, being more awake and alert during the day, more rested overall. denies: drowsiness while driving Initial [place] Sleepiness Scale score: 9 Current [place] Sleepiness Scale score: 5 Allergies and Home Medications Drug allergies reviewed: Yes (NKDA) Home medication list reviewed: Yes (No changes) Review of Systems Review of systems same as previous: Yes (No changes; seeing orthopedic for knee pain) Physical Exam Heart Rate: 64 O2 Saturation: 99 Height: 5 ft 2.5 in Weight: 225 lb Body Mass Index: 40.5 BMI Classification: Morbidly Obese Impression and Plan 1. Obstructive Sleep Apnea-Hypopnea Syndrome, mild, with good treatment compliance and good apnea control. On CPAP therapy, the patient has better sleep quality and is more rested overall. Patient still complaining of feeling like the mask headgear is restrictive, choking her and pulling her hair. She is getting some air leaking into her eyes and some dry eyes in the morning occasionally. She states she thinks the air is coming from the air holes in the upper part of the full face Dreamwear mask. I had her look over masks in the office and she would like to try the full face F30i because it if very similar to current mask but the air holes are near bottom of mask that she feels will work better. I will order a mask refitting for this new mask. She is also having difficulty with nasal congestion. Nasal congestion can be reduced with increasing the CPAP humidity as shown on sample device. The heated hose can be adjusted higher if condensation with higher humidity setting. Saline nasal spray sample was also given to use prior to CPAP to clear nasal secretions and wash off any nasal allergens to facilitate nasal breathing. In addition, a steamy shower before bed will often assist nasal drainage. Printed instructions given on how to change humidity and heated hose settings with rationale explaining why to change. Patient's apnea severity and rationale for treatment to reduce apnea, improve sleep quality and reduce cardiovascular and cerebrovascular events was reviewed. I also reviewed the benefit of consistent device use of CPAP for her depression/anxiety. * Continue auto CPAP pressure at 8-10 cmH2O * Mask refitting of the F30i * Notify me if snoring with mask or feeling that the pressure is too much or too little * Attempt to lose weight * Call this office if any problems using CPAP * Return for follow up in 1 year, or sooner if concerns arise Visit Type: In Office Time Spent with Patient (minutes): 20 Provider Statement: I spent 100% of the Face to Face Visit with the patient with greater than 50% spent counseling the patient and coordination of care.
== END 2019-11-18 07:55 | disposition home or self-care (01) ==
LOC: SC 07:54
PROVIDERS: ATTEND Nurse Practitioner Family
DX: G47.33 Obstructive sleep apnea (adult) (pediatric) (principal); E66.01 Morbid (severe) obesity due to excess calories; Z68.41 Body mass index [BMI] 40.0-44.9, adult
CPT/HCPCS: 99213; G0463; 99212

== ENCOUNTER 2020-05-27 08:00 | Outpatient (CLI) | payer MEDICARE, OTHER ==
--- NOTE | 2020-05-27 17:08 | XRAY Report ---
PROCEDURE: Finger(s) LT INDICATIONS: PAIN IN LEFT FINGERS TECHNIQUE: AP hand, 2 additional views of the third finger(s) acquired. COMPARISON: None targeted to the left hand. FINDINGS: Bones: No dislocations but there is severe degenerative osteoarthritic change with joint space narro wing and marginal osteophyte formation involving the third digit, and also seen involving the first s econd fourth and fifth digits to a slightly lesser degree. The most prominent degree of degeneration is found at the distal inner phalangeal joint of the third digit. There is a diagonal nondisplaced fr acture located at the middle phalanx of the third digit, likely due to recent trauma.. No suspicious bony lesions. Soft tissues: No suspicious soft tissue calcifications. IMPRESSION: Acute fracture, nondisplaced, diagonally through the middle and distal thirds of the third middle pha lanx. There also is a pattern of moderately severe to severe degenerative osteoarthritic change invol ving the digits of the left hand, most pronounced at the third distal inner phalangeal joint. Reviewed by: Kemar Aggarwal MD on 05/27/2020 5:06 PM PDT Approved by: Kemar Aggarwal MD on 05/27/2020 5:06 PM PDT Station ID: [id number]
== END 2020-05-27 23:59 | disposition home or self-care (01) ==
LOC: DI.S 08:00
PROVIDERS: ATTEND Physician Assistant
DX: M79.645 Pain in left finger(s) (principal); S62.653A Nondisplaced fracture of middle phalanx of left middle finger, initial encounter for closed fracture; M19.042 Primary osteoarthritis, left hand

== ENCOUNTER 2020-11-30 17:30 | Outpatient (CLI) | payer MEDICARE, OTHER ==
--- NOTE | 2020-11-30 16:16 | SLEEP CARE CONSULTATION ---
Information from patient questionnaire entered by Harinder Briones. I have reviewed and concur with the information entered by Harinder Briones. This document represents the service I personally performed and the decisions made by me, Regis Clemens MD, [facility]. History of Present Illness Service Date and Time: 11/30/2020 1600 Previous diagnosis: Mild, Obstructive Sleep Apnea-Hypopnea Syndrome AHI: 9.8 Reason for follow up: annual (Last seen 11/2019) Equipment type: CPAP Equipment obtained from: Other ([employer]; getting supplies as needed) Mask style: Full face Prior sleep studies: Yes Year and Where: 2018 [facility] additional information: Ms. Calabrese was called today for annual follow up of nasal CPAP therapy. She was diagnosed to have mild obstructive sleep apnea-hypopnea syndrome. The patient gets her supplies from [employer]. She wears a full face mask. She reports using the device nightly and all through the night. The compliance report shows usage in 178 nights out of the past 180 nights, averaging 5 hours a night. She complained of air leaking into her eyes but no particular problem with the device such as soreness on the face, dry nose, epistaxis, nasal congestion or headache. She thinks that the pressure of 8 - 10 cmH2O is comfortable. On the CPAP therapy she notices improvement in her sleep quality, and that she wakes up feeling fresher in the morning and more awake/alert during the day. Her notices no snore at all. The average residual AHI is 1.3; and air leak, 0.9 L/min. The 90th percentile pressure is 9.4 cmH2O. CPAP Compliance Data - Data Reviewed with Patient Average duration of nightly device use: 5 h 2 min Compliance rate %: 73 Current pressure setting (cmH2O): 8-10 Average large leak: 1.3 Subjective Initial [place] Sleepiness Scale score: 9 (in 2018) Allergies and Home Medications Drug allergies reviewed: Yes Home medication list reviewed: Yes Review of Systems Review of systems same as previous: Yes Physical Exam Height: 5 ft 2.5 in Impression and Plan IMPRESSION: 1. Obstructive Sleep Apnea-Hypopnea Syndrome, mild, with the patient doing well on nasal CPAP therapy. She has excellent compliance and significant clinical improvement. The current pressure appears effective and comfortable. Overall, she is very satisfied with treatment and plans to continue with it long-term. To reduce the air leak, I will lower the pressure range. PLAN: 1. AutoCPAP set to 5 - 10 cmH2O. 2. Try to lose weight 3. Try other full face masks, e.g. Respironics DreamWear full face mask or a ResMed F30 full face mask. 4. Return in one year for follow up or earlier if there is any problem with the treatment. Counseling Topics: Weight control Follow up with Sleep Care in: 1 year Visit Type: Telehealth Phone Patient Location: Home Location of Provider: Office Patient agrees and consents to this telehealth visit type: Yes Patient agrees to have their insurance billed: Yes Provider Statement: I spent 100% of the Telehealth Phone Call with the patient with greater than 50% spent counseling the patient and coordination of care.
== END 2020-11-30 17:31 | disposition home or self-care (01) ==
LOC: SC 17:30
PROVIDERS: ATTEND Internal Medicine Pulmonary Disease
DX: G47.33 Obstructive sleep apnea (adult) (pediatric) (principal)

== ENCOUNTER 2021-04-18 14:27 | Outpatient (CLI) | payer MEDICARE, OTHER ==
--- NOTE | 2021-04-20 07:38 | Mammography Report ---
BILATERAL DIGITAL SCREENING MAMMOGRAM 3D/2D: 04/18/2021 CLINICAL: Routine screening. Family history of breast cancer. Comparison is made to exams dated: 09/23/2019 mammogram, 01/05/2015 mammogram, and 11/08/2013 mammogram - [facility]. The tissue of both breasts is predominantly fatty. No significant masses, calcifications, or other findings are seen in either breast. There has been no significant interval change. IMPRESSION: NEGATIVE There is no mammographic evidence of malignancy. A 1 year screening mammogram is recommended. This exam was interpreted at Station ID: [id number]. NOTE: For mammograms, a report in lay terms will be sent to the patient. Approximately 15% of breast malignancies will not be visualized mammographically. In the management of a palpable breast mass, a negative mammogram must not discourage biopsy of a clinically suspicious lesion. Electronically Signed By: Seng Rosales M.D. aty/[email or web address]:04/19/2021 09:07:11 ACR BI-RADS Category 1: Negative 3341F PARENCHYMAL PATTERN: (F) - The breast(s) demonstrate(s) diffuse fatty replacement. BI-RADS CATEGORY: (1) - 1 RECOMMENDATION: (ANNUAL) - Recommend routine annual screening mammography. [id number] 1 year screening LATERALITY: (B)
== END 2021-04-18 14:28 | disposition home or self-care (01) ==
LOC: DI.S 14:27
PROVIDERS: ATTEND Internal Medicine
DX: Z12.31 Encounter for screening mammogram for malignant neoplasm of breast (principal); Z80.3 Family history of malignant neoplasm of breast

== ENCOUNTER 2021-08-05 12:19 | Outpatient (CLI) | payer MEDICARE, OTHER ==
[2021-08-05 12:39] LABS: BASOPHILS % (AUTO) 0.3 %; EOSINOPHILS # (AUTO) 0.1 10^3/uL (0.0-0.7); EOSINOPHILS % (AUTO) 1.3 %; HCT - HEMATOCRIT 36.5 % (37.0-47.0); HGB - HEMOGLOBIN 11.6 g/dL (12.0-16.0); LYMPHOCYTES # (AUTO) 1.8 10^3/uL (1.5-3.5); LYMPHOCYTES % (AUTO) 28.8 %; MEAN CORPUSCULAR HEMOGLOBIN 29.1 pg (27.0-31.0); MEAN CORPUSCULAR HGB CONC 31.8 g/dL (32.0-36.0); MEAN CORPUSCULAR VOLUME 91.5 fL (81.0-99.0); MEAN PLATELET VOLUME 10.6 fL (7.9-10.8); MONOCYTES # (AUTO) 0.5 10^3/uL (0.0-1.0); NEUTROPHILS # (AUTO) 3.8 10^3/uL (1.5-6.6); NEUTROPHILS % (AUTO) 61.3 %; PLT - PLATELET COUNT 216 10^3/uL (130-450); RED BLOOD COUNT 3.99 10^6/uL (4.20-5.40); RED CELL DISTRIBUTION WIDTH 13.4 % (12.0-15.0); WHITE BLOOD COUNT 6.2 x10^3/uL (4.8-10.8)
[2021-08-05 13:09] LABS: THYROID STIMULATING HORMONE 2.25 uIU/mL (0.34-5.60)
== END 2021-08-05 12:20 | disposition home or self-care (01) ==
LOC: LAB 12:19
PROVIDERS: ATTEND Internal Medicine
DX: L65.9 Nonscarring hair loss, unspecified (principal); Z80.6 Family history of leukemia
CPT/HCPCS: 36415; 82627; 84403; 84443; 85025

== ENCOUNTER 2022-04-12 13:50 | Outpatient (CLI) | payer MEDICARE, OTHER ==
--- NOTE | 2022-04-13 11:29 | Mammography Report ---
BILATERAL DIGITAL SCREENING MAMMOGRAM 3D/2D: 04/12/2022 CLINICAL: Routine screening. Comparison is made to exams dated: 04/18/2021 mammogram, 09/23/2019 mammogram, and 01/05/2015 mammogram - [facility]. Both breasts are almost entirely fatty (category a/<25% glandular tissue). No significant masses, calcifications, or other findings are seen in either breast. There has been no significant interval change. IMPRESSION: NEGATIVE There is no mammographic evidence of malignancy. A 1 year screening mammogram is recommended. Based on the Tyrer Cuzick model (a risk assessment model) the patients lifetime risk is 7.2% and her 10 year risk is 4.6%. According to the ACR, ACS, and NCCN guidelines, an annual breast MRI exam lupe g with mammogram is recommended if the patients lifetime risk is 20% or greater. This exam was interpreted at Station ID: [id number]. NOTE: For mammograms, a report in lay terms will be sent to the patient. Approximately 15% of breast malignancies will not be visualized mammographically. In the management of a palpable breast mass, a negative mammogram must not discourage biopsy of a clinically suspicious lesion. Electronically Signed By: Isaac [email or web address]/penrad:04/12/2022 16:44:11 ACR BI-RADS Category 1: Negative 3341F PARENCHYMAL PATTERN: (F) - The breast(s) demonstrate(s) diffuse fatty replacement. BI-RADS CATEGORY: (1) - 1 RECOMMENDATION: (ANNUAL) - Recommend routine annual screening mammography. [id number] 1 year screening LATERALITY: (B)
== END 2022-04-12 13:51 | disposition home or self-care (01) ==
LOC: DI 13:50
PROVIDERS: ATTEND Internal Medicine
DX: Z12.31 Encounter for screening mammogram for malignant neoplasm of breast (principal)

== ENCOUNTER 2022-10-24 13:08 | Outpatient (CLI) | payer MEDICARE, OTHER ==
--- NOTE | 2022-10-24 22:41 | SLEEP CARE CONSULTATION ---
Information from patient questionnaire entered by Ej Ronquillo. I have reviewed and concur with the information entered by Ej Ronquillo. This document represents the service I personally performed and the decisions made by me, Regis Clemens MD, [facility]. History of Present Illness Service Date and Time: 10/24/2022 1308 Previous diagnosis: Mild, Obstructive Sleep Apnea-Hypopnea Syndrome AHI: 9.8 Reason for follow up: annual (LAST SEEN 11/2020) Equipment type: CPAP (RESMED) Equipment obtained from: Other ([employer]; getting supplies as needed) Mask style: Full face Prior sleep studies: Yes Year and Where: 2017 [facility] additional information: Mrs. Calabrese was called today for annual follow up of nasal CPAP therapy. She was diagnosed to have mild obstructive sleep apnea-hypopnea syndrome. The patient gets her supplies from [employer]. She wears a ResMed F30 full face mask. She reports using the device nightly but not all night. The compliance report shows usage in 178 nights out of the past 180 nights, averaging 5 hours a night. She complained of air leaking into her eyes but no particular problem with the device such as soreness on the face, dry nose, epistaxis, nasal congestion or headache. She thinks that the pressure of 8 - 10 cmH2O is comfortable. On the CPAP therapy she notices improvement in her sleep quality, and that she wakes up feeling fresher in the morning and more awake/alert during the day. Her notices no snore at all. The average residual AHI is 1.3; and air leak, 0.9 L/min. The 90th percentile pressure is 9.4 cmH2O. Sleep Study - Results Prior sleep studies: Yes Year and Where: 2017 [facility] Subjective Initial [place] Sleepiness Scale score: 9 (in 2018) Current [place] Sleepiness Scale score: 1 (10/24/22) Allergies and Home Medications Drug allergies reviewed: Yes Home medication list reviewed: Yes Allergy and home medication list: Allergies No Known Drug Allergies Allergy (Verified 10/24/22 08:34) Review of Systems Review of systems same as previous: Yes Physical Exam Vital signs obtained and entered by: EJ Faria MA Blood Pressure: 132/80 (LEFT ARM) Cuff size: long Heart Rate: 78 O2 Saturation: 98 Height: 5 ft 2.5 in Weight: 242 lb 6.4 oz Body Mass Index: 43.6 BMI Classification: Morbidly Obese Impression and Plan IMPRESSION: 1. Obstructive Sleep Apnea-Hypopnea Syndrome, mild, with the patient using her CPAP regularly but has slightly [id number] compliance. The current pressure appears effective and comfortable. Overall, she is very satisfied with the treatment and plans to continue with it long-term. To reduce the air leak, I will lower the pressure range. Because the CPAP is now older than the useful life of 5 years, she is eligible for a new one. However, she will first have to show good treatment compliance. PLAN: 1. AutoCPAP set to 4 - 8 cmH2O via the modem. 2. Try a nasal mask or nasal pillows 3. Prescription made for supplies. 4. Return in one month to recheck compliance. If she is compliant, a new machine will be ordered. Counseling Topics: Weight control Follow up with Sleep Care in: 1-2 months Visit Type: In Office Other Participants: Spouse/Significant Other Time Spent with Patient (minutes): 15 Provider Statement: I spent 100% of the Face to Face Visit with the patient with greater than 50% spent counseling the patient and coordination of care.
[2022-10-24 22:45] VITALS: BP 132/80; O2SAT 98
== END 2022-10-24 13:09 | disposition home or self-care (01) ==
LOC: SC 13:08
PROVIDERS: ATTEND Internal Medicine Pulmonary Disease
DX: G47.33 Obstructive sleep apnea (adult) (pediatric) (principal)
CPT/HCPCS: 99212; G0463

== ENCOUNTER 2022-11-28 14:46 | Outpatient (CLI) | payer MEDICARE, OTHER ==
--- NOTE | 2022-11-28 15:52 | SLEEP CARE CONSULTATION ---
Information from patient questionnaire entered by Ej Ronquillo. I have reviewed and concur with the information entered by Ej Ronquillo. This document represents the service I personally performed and the decisions made by me, Regis Clemens MD, [facility]. History of Present Illness Service Date and Time: 11/28/2022 1446 Previous diagnosis: Mild, Obstructive Sleep Apnea-Hypopnea Syndrome AHI: 9.8 Reason for follow up: one month (F/U) Equipment type: CPAP (RESMED) Equipment obtained from: Other ([employer]; getting supplies as needed) Mask style: Full face [facility] additional information: Mrs. Calabrese was called today for annual follow up of nasal CPAP therapy. She was diagnosed to have mild obstructive sleep apnea-hypopnea syndrome. The patient gets her supplies from [employer]. She wears a ResMed F30 full face mask. She reports using the device nightly but not all night. The compliance report shows usage in 30 nights out of the past 30 nights, averaging 7.3 hours a night. She complained of air leaking into her eyes but no particular problem with the device such as soreness on the face, dry nose, epistaxis, nasal congestion or headache. She thinks that the pressure of 4 - 8 cmH2O is comfortable (lowered from 8 10 cmH2O last month for airleak). On the CPAP therapy she notices improvement in her sleep quality, and that she wakes up feeling fresher in the morning and more awake/alert during the day. Her notices no snore at all. The average residual AHI is 1.0; and air leak, 0 L/min. The 90th percentile pressure is 7.5 cmH2O. Sleep Study - Results [facility]: Yes [facility] CPAP Compliance Data - Data Reviewed with Patient Average duration of nightly device use: 7HRS 21MIN Compliance rate %: 100 (10/26/22-11/24/22) Current pressure setting (cmH2O): 4-8 Average residual AHI: 1.0 Subjective Initial [place] Sleepiness Scale score: 9 (in 2018) Current [place] Sleepiness Scale score: 3 (11/28/22) Allergies and Home Medications Drug allergies reviewed: Yes Home medication list reviewed: Yes Allergy and home medication list: Allergies No Known Drug Allergies Allergy (Verified 11/25/22 10:09) Review of Systems Review of systems same as previous: Yes Physical Exam Vital signs obtained and entered by: EJ Faria MA Blood Pressure: 134/82 (LEFT ARM) Cuff size: regular Heart Rate: 72 O2 Saturation: 98 Height: 5 ft 2.5 in Weight: 239 lb 6.4 oz Body Mass Index: 43.0 BMI Classification: Morbidly Obese Impression and Plan IMPRESSION: 1. Obstructive Sleep Apnea-Hypopnea Syndrome, mild, with the patient using her CPAP regularly and has good compliance. The current pressure appears effective and comfortable. Air leak resolved completely. Overall, she is very satisfied with the treatment and plans to continue with it long-term. Because the CPAP is now older than the useful life of 5 years, I will order the patient a new one and make it an autoCPAP set between 4 and 8 cmH2O. PLAN: 1. Prescription made for an autoCPAP, heated humidifier, and related supplies. through [email or web address]. 2. Return for follow up after one month of using the CPAP. Prescriptions: Auto CPAP Follow up with Sleep Care in: 1-2 months Visit Type: In Office Other Participants: Spouse/Significant Other Time Spent with Patient (minutes): 15 Provider Statement: I spent 100% of the Face to Face Visit with the patient with greater than 50% spent counseling the patient and coordination of care.
[2022-11-28 15:58] VITALS: BP 134/82; O2SAT 98
== END 2022-11-28 14:47 | disposition home or self-care (01) ==
LOC: SC 14:46
PROVIDERS: ATTEND Internal Medicine Pulmonary Disease
DX: G47.33 Obstructive sleep apnea (adult) (pediatric) (principal); E66.01 Morbid (severe) obesity due to excess calories; Z68.41 Body mass index [BMI] 40.0-44.9, adult
CPT/HCPCS: 99212; G0463

== ENCOUNTER 2023-02-22 15:43 | Outpatient (CLI) | payer MEDICARE, OTHER ==
--- NOTE | 2023-02-22 16:28 | Sleep Patient Instructions ---
Sleep Center Visit Summary - Patient Visit Information Reason for Visit: First compliance with CPAP update - Patient Instructions Additional Instructions: You were here for follow up of CPAP therapy. You will be continued on CPAP therapy with pressure at 4-8 cmH2O. You should follow up with sleep care in 12 months. You may contact us sooner for any questions or concerns. - Clinic Information Contact: [facility] [address] [place] [address] [email or web address] T: [phone]
--- NOTE | 2023-02-22 16:33 | SLEEP CARE CONSULTATION ---
Information from patient questionnaire entered by Rica Ronquillo. I have reviewed and concur with the information entered by Rica Ronquillo. This document represents the service I personally performed and the decisions made by me, Jackie Harris ARNP. History of Present Illness Service Date and Time: 02/22/2023 1543 Previous diagnosis: Mild, Obstructive Sleep Apnea-Hypopnea Syndrome AHI: 9.8 Reason for follow up: first compliance after device update Accompanied by: Spouse Equipment type: CPAP (ResMed Airsense 11, s/u 12/2022) Equipment obtained from: Other ([facility]; getting supplies as needed) Mask style: Full face Backup mask available: Yes Last cushion change: 1 week [facility] additional information: DEDRA HANNA was diagnosed to have mild, AHI 9.8, obstructive sleep apnea- hypopnea syndrome and returned today for CPAP therapy first compliance after updating device follow-up. Sleep Study - Results Prior sleep studies: Yes Year and Where: 2018 [employer] CPAP Compliance Data - Data Reviewed with Patient Average duration of nightly device use: 5 HRS 16 MINS Compliance rate %: 70 (12/29/22-01/27/23; 29/30 days used) Current pressure setting (cmH2O): 4-8 Average residual AHI: 3.5 Central apnea: 0.3 Obstructive apnea: 1.9 Average large leak: 0 L/min Subjective Missed days of use due to: reports: other (cararact surgery) Patient concerns: reports: mask discomfort, condensation in mask/hose, dry mouth, nose, throat. denies: aerophagia, air blowing in eyes, mask leak noise, nasal congestion, epistaxis Observed to snore while using device: No Current pressure setting perceived as: comfortable On therapy, patient: reports: sleeping better, awakening more refreshed, being more awake and alert during the day, more rested overall. denies: drowsiness while driving Initial [place] Sleepiness Scale score: 9 (in 2018) Current [place] Sleepiness Scale score: 2 (02/22/23) Allergies and Home Medications Known drug allergies: No Drug allergies reviewed: Yes Home medication list reviewed: Yes (no changes) Allergy and home medication list: Allergies No Known Drug Allergies Allergy (Verified 12/19/23 10:14) Review of Systems Review of systems same as previous: Yes (NO CHANGE) Physical Exam Vital signs obtained and entered by: RICA Faria MA Blood Pressure: 160/84 (RIGHT ARM) Cuff size: regular Heart Rate: 75 O2 Saturation: 99 Height: 5 ft 2.5 in Weight: 235 lb 9.6 oz Body Mass Index: 42.4 BMI Classification: Morbidly Obese Impression and Plan 1. Obstructive Sleep Apnea-Hypopnea Syndrome, mild, with good treatment compliance and good apnea control. On CPAP therapy, the patient has better sleep quality and is more rested overall. Patient has significant improvement of their sleep apnea and is satisfied with current CPAP therapy. Patient states she is getting a lot of condensation in her tubing. She has turned her humidifier down to 1 but just recently turned it back to 2 because she is getting dry in the mouth. She says she does have a heated hose and I went online and increased her heated hose to 82 degrees to help reduce the condensation. She states a little mask discomfort but says this mask is the best one she has found. She does like her new CPAP overall. We will follow up with her next year. Patient's apnea severity and rationale for treatment to reduce apnea, improve sleep quality and reduce cardiovascular and cerebrovascular events was reviewed. I also reviewed the benefit of consistent device use of CPAP for depression/anxiety. 2. Obesity, unspecified. Currently patients BMI is 42.4. Obesity increases the risk of apnea, CPAP pressure requirements and overall health risks especially cardiovascular and diabetes. Thus patient is advised to lose weight. * Continue auto CPAP pressure at 4-8 cmH2O * Notify me if snoring with mask or feeling that the pressure is too much or too little * Attempt to lose weight * Call this office if any problems using CPAP * Return for follow up in 12 months, or sooner if concerns arise Counseling Topics: Spare mask, Weight loss health impact Follow up with Sleep Care in: 1 year Visit Type: In Office Time Spent with Patient (minutes): 20 Provider Statement: I spent 100% of the Face to Face Visit with the patient with greater than 50% spent counseling the patient and coordination of care.
[2023-02-22 16:41] VITALS: BP 160/84; O2SAT 99
== END 2023-02-22 15:44 | disposition home or self-care (01) ==
LOC: SC 15:43
PROVIDERS: ATTEND Nurse Practitioner Family
DX: G47.33 Obstructive sleep apnea (adult) (pediatric) (principal); E66.01 Morbid (severe) obesity due to excess calories; Z68.41 Body mass index [BMI] 40.0-44.9, adult
CPT/HCPCS: 99213; G0463; 99212

== ENCOUNTER 2023-06-01 13:39 | Outpatient (CLI) | payer MEDICARE, OTHER | END 2023-06-01 13:40 | disposition home or self-care (01) | LOC: DI 13:39 | PROVIDERS: ATTEND Internal Medicine | DX: I08.3 Combined rheumatic disorders of mitral, aortic and tricuspid valves (principal) | CPT/HCPCS: 93307 ==